=== PATIENT | male | born 1985 | race Caucasian/White ===

== ENCOUNTER 2017-08-18 08:31 | Emergency (ER) | payer SELFPAY ==
[2017-08-18 08:40] VITALS: BP 149/88
--- NOTE | 2017-08-18 10:28 | UC ---
Cardiac HPI - HPI Summary HPI Summary: 31 y/o male with no PMH, no current medications c/o chest pain since thursday night- worke up feeling "choking" sensation, + vomiting x 2, since then substernal chest pain, lightheadedness, fatigue, pallor. Denies prior episodes. Pain sharp, substernal, no radiation. unable to drive to lightheadedness at times. nothing makes pain worse, no change after eating. - History of Current Complaint Chief Complaint: UCGI Stated Complaint: EPIGASTRIC PAIN Time Seen by Provider: 08/18/17 10:10 Onset/Duration: Sudden Onset, Lasting Days, Worse Since - worse daily Pain Intensity: 4 - Allergy/Home Medications Allergies/Adverse Reactions: Allergies Allergy/AdvReac Type Severity Reaction Status Date / Time No Known Allergies Allergy Verified 03/25/16 12:29 PMH/Surg Hx/FS Hx/Imm Hx - Additional Past Medical History Additional PMH: mother- recent TIA Previously Healthy: Yes - + TOB use 1 PPD - Surgical History Surgical History: None - Family History Known Family History: Positive: None - denies dm/cardiac disease - Social History Alcohol Use: Rare Substance Use Type: Marijuana Substance Use Comment - Amount & Last Used: daily Smoking Status (MU): Heavy Every Day Tobacco Smoker Type: Cigarettes Amount Used/How Often: 1 PPD Length of Time of Smoking/Using Tobacco: 10 years Have You Smoked in the Last Year: Yes Review of Systems Constitutional: Negative Skin: Negative Eyes: Negative ENT: Negative Respiratory: Negative Cardiovascular: Negative Gastrointestinal: Negative Motor: Weakness Neurovascular: Negative Musculoskeletal: Negative Neurological: Weakness Psychological: Anxious Is Patient Immunocompromised?: No All Other Systems Reviewed And Are Negative: Yes Physical Exam Triage Information Reviewed: Yes Appearance: Well-Appearing, No Pain Distress, Well-Nourished, Other: - anxious appearing Vital Signs: Initial Vital Signs Temp 98.9 F 08/18/17 08:37 Pulse 110 08/18/17 08:37 Resp 18 08/18/17 08:37 BP 149/88 08/18/17 08:37 Pulse Ox 100 08/18/17 08:37 Vital Signs Reviewed: Yes Eyes: Positive: Conjunctiva Clear Respiratory: Positive: Chest non-tender, Lungs clear, Normal breath sounds, No respiratory distress, No accessory muscle use Cardiovascular: Positive: No Murmur, Pulses Normal, Tachycardia Abdomen Description: Positive: No Organomegaly, Soft, Other: - tender over upper epigastric region. Negative: CVA Tenderness (R), CVA Tenderness (L), Distended, Guarding Neurological Exam: Normal Psychological Exam: Normal Skin: Positive: Other - + pallor - Assessment/Plan Course Of Treatment: chest pain- sinus arrthymia on EKG, go to [facility] for further work up, osman clemente mother will drive. - Clinical Impression Provider Diagnoses: chest pain Discharge - Sign-Out/Discharge Documenting (check all that apply): Discharge - Discharge Plan Condition: Guarded Disposition: HOME Patient Education Materials: Chest Pain (ED) Referrals: No Primary Care Phys,NOPCP [Primary Care Provider] - Additional Instructions: - Patient advised to go to ER for further work up due to complexity of symptoms. - - Billing Disposition and Condition Condition: GUARDED Disposition: HOME
== END 2017-08-18 10:44 | disposition home or self-care (01) ==
LOC: UCEAST 08:31
DX: R07.89 Other chest pain (principal); F17.210 Nicotine dependence, cigarettes, uncomplicated; R53.1 Weakness; F41.9 Anxiety disorder, unspecified; I49.9 Cardiac arrhythmia, unspecified
CPT/HCPCS: 93005; 99211; G0463

== ENCOUNTER 2017-08-18 11:08 | Emergency (ER) | payer SELFPAY ==
[2017-08-18 12:09] LABS: ABS Basophils 0.1 10^3/ul (0-0.2); ABS Eosinophils 0 10^3/ul (0-0.6); ABS Lymphocytes 1.4 10^3/ul (1.0-4.8); ABS Monocytes 0.3 10^3/ul (0-0.8); ABS Neutrophils 5.5 10^3/ul (1.5-7.7); ABS Nucleated RBC 0 10^3/ul; Eosinophil % 0.3 % (0-6); Hematocrit 41 % (42-52); Hemoglobin 14.1 g/dl (14.0-18.0); Mean Corpuscular HGB Conc 34 g/dl (31-36); Mean Corpuscular Hemoglobin 33 pg (27-31); Mean Corpuscular Volume 97 fL (80-94); Mean Platelet Volume 8.6 um3 (7.4-10.4); Nucleated Red Blood Cells % 0; Platelet Count 184 10^3/ul (150-450); Red Blood Count 4.26 10^6/ul (4.0-5.4); Red Cell Distribution Width 12 % (10.5-15); White Blood Count 7.3 10^3/ul (3.5-10.8)
[2017-08-18] MEDS ORDERED: Al Hydrox/Mg Hydrox/Simet LIQ* 30 ML UDC PO ONE (12:13)
--- NOTE | 2017-08-18 12:14 | RAD ---
HISTORY: Chest pain COMPARISONS: None VIEWS: 1: frontal portable view of the chest at 11:53 AM FINDINGS: LINES AND TUBES: None. CARDIOMEDIASTINAL SILHOUETTE: The cardiomediastinal silhouette is normal for portable technique. PLEURA: The costophrenic angles are sharp. No pleural abnormalities are noted. LUNG PARENCHYMA: The lungs are clear. ABDOMEN: The upper abdomen is clear. There is no subphrenic gas. BONES AND SOFT TISSUES: No bone or soft tissue abnormalities are noted. IMPRESSION: NO ACTIVE CARDIOPULMONARY DISEASE.
--- NOTE | 2017-08-18 12:23 | ED ---
HPI Chest Pain - HPI Summary HPI Summary: Patient is a 31-year-old male who presents emergency department for sternal chest pain 4 days. Pain has been intermittent without modifying factors. Patient denies associated symptoms of nausea, vomiting, diarrhea, abdominal pain , recent upper respiratory infection, cough, fever. Admits to marijuana use but denies other illicit drugs. He has no past medical history. He is a daily tobacco smoker. Denies strong family history for CO. Patient has tried taking Tylenol for the pain with no relief. Symptoms are moderate in severity. No current modifying factors. - History of Current Complaint Chief Complaint: EDChestPainROMI Time Seen by Provider: 08/18/17 11:27 Hx Obtained From: Patient Pain Intensity: 4 - Allergy/Home Medications Allergies/Adverse Reactions: Allergies Allergy/AdvReac Type Severity Reaction Status Date / Time No Known Allergies Allergy Verified 03/25/16 12:29 Home Medications: Home Medications NK [No Home Medications Reported] 08/18/17 [History Confirmed 08/18/17] PMH/Surg Hx/FS Hx/Imm Hx Previously Healthy: Yes Endocrine/Hematology History: Denies: Hx Diabetes, Hx Thyroid Disease Cardiovascular History: Denies: Hx Hypertension Respiratory History: Denies: Hx Asthma, Hx Chronic Obstructive Pulmonary Disease (COPD) GI History: Denies: Hx Ulcer Infectious Disease History: No Infectious Disease History: Denies: Hx Clostridium Difficile, Hx Hepatitis, Hx Human Immunodeficiency Virus (HIV), Hx of Known/Suspected MRSA, Hx Shingles, Hx Tuberculosis, Hx Known/ Suspected VRE, Hx Known/Suspected VRSA, History Other Infectious Disease, Traveled Outside the [place] in Last 30 Days - Family History Known Family History: Positive: None - denies dm/cardiac disease - Social History Occupation: Employed Full-time Lives: With Family Alcohol Use: Rare Substance Use Type: Reports: Marijuana Substance Use Comment - Amount & Last Used: daily Hx Tobacco Use: Yes Smoking Status (MU): Heavy Every Day Tobacco Smoker Type: Cigarettes Amount Used/How Often: 1 PPD Length of Time of Smoking/Using Tobacco: 10 years Have You Smoked in the Last Year: Yes Review of Systems Constitutional: Negative Negative: Fever, Chills Eyes: Negative ENT: Negative Positive: Chest Pain. Negative: Palpitations Negative: Shortness Of Breath, Cough Negative: Abdominal Pain, Vomiting, Diarrhea, Nausea Genitourinary: Negative Musculoskeletal: Negative Skin: Negative Neurological: Negative All Other Systems Reviewed And Are Negative: Yes Physical Exam Triage Information Reviewed: Yes Vital Signs On Initial Exam: Initial Vitals Temp Pulse Resp BP Pulse Ox 97.8 F 86 16 134/82 100 08/18/17 11:18 08/18/17 11:18 18 11:18 08/18/17 11:18 08/18/17 11:18 Vital Signs Reviewed: Yes Appearance: Positive: Well-Appearing - Pt. lying in bed in NAD. Mother present. Head/Face: Positive: Normal Head/Face Inspection Cardiovascular: Positive: Normal, RRR Abdomen Description: Positive: Nontender, Soft Musculoskeletal: Positive: Normal Neurological: Positive: Normal, CN Intact II-III Psychiatric: Positive: Normal Diagnostics - Vital Signs Vital Signs Temp Pulse Resp BP Pulse Ox 08/18/17 11:18 97.8 F 86 16 134/82 100 - Laboratory Lab Results: Lab Results 08/18/17 Range/Units 11:55 WBC 7.3 (3.5-10.8) 10^3/ul RBC 4.26 (4.0-5.4) 10^6/ul Hgb 14.1 (14.0-18.0) g/dl Hct 41 L (42-52) % MCV 97 H (80-94) fL MCH 33 H (27-31) pg MCHC 34 (31-36) g/dl RDW 12 (10.5-15) % Plt Count 184 (150-450) 10^3/ul MPV 8.6 (7.4-10.4) um3 Neut % (Auto) 75.0 (38-83) % Lymph % (Auto) 19.0 L (25-47) % [place] % (Auto) 4.7 (0-7) % Eos % (Auto) 0.3 (0-6) % Baso % (Auto) 1.0 (0-2) % Absolute Neuts (auto) 5.5 (1.5-7.7) 10^3/ul Absolute Lymphs (auto) 1.4 (1.0-4.8) 10^3/ul Absolute Monos (auto) 0.3 (0-0.8) 10^3/ul Absolute Eos (auto) 0 (0-0.6) 10^3/ul Absolute Basos (auto) 0.1 (0-0.2) 10^3/ul Absolute Nucleated RBC 0 10^3/ul Nucleated RBC % 0 Result Diagrams: 08/18/17 11:55 08/18/17 11:55 Lab Statement: Any lab studies that have been ordered have been reviewed, and results considered in the medical decision making process. Chest Pain Course/Dx - Course Course Of Treatment: Pt. presenting with intermittent chest pain x 4 days. He is afebrile with stable vital signs. O2 saturation is 100% on RA which is normal. ECG done at 1120 shows a sinus rhythm of 91bpm, normal axis, early repolarization. Labs are unremarkable. CXR is negative for acute findings per my and radiology read. Did give a dose of Maalox without change. Results were discussed. Pt. currently does not have a PCP. He was given referral number to establish one. Advised tylenol or motrin for pain as directed. To return to ER if sxs change or worsen. - Diagnoses Provider Diagnoses: Atypical chest pain Discharge - Sign-Out/Discharge Documenting (check all that apply): Discharge - Discharge Plan Condition: Good Disposition: HOME Patient Education Materials: Chest Pain (ED) Forms: *Work Release Referrals: [facility] [Outside] No Primary Care Phys,NOPCP [Primary Care Provider] - Additional Instructions: [place] the [facility] [place] to establish a PCP Tylenol or Motrin for pain as directed Return to ER if symptoms change or worsen - Billing Disposition and Condition Condition: GOOD Disposition: HOME
[2017-08-18 12:33] LABS: EGFR Non-African American 102.4 (>60)
[2017-08-18 13:05] VITALS: BP 112/67
== END 2017-08-18 13:04 | disposition home or self-care (01) ==
LOC: ED 11:08
DX: R07.89 Other chest pain (principal); R11.2 Nausea with vomiting, unspecified; R19.7 Diarrhea, unspecified; J06.9 Acute upper respiratory infection, unspecified; F17.210 Nicotine dependence, cigarettes, uncomplicated
CPT/HCPCS: 36415; 71045; 80053; 83690; 84484; 85025; 93005; 99282; A9270-GY

== ENCOUNTER 2017-12-28 09:19 | Emergency (ER) | payer SELFPAY ==
[2017-12-28 09:30] VITALS: BP 113/74
[2017-12-28] MEDS ORDERED: oxyCODONE/Acetamin 5/325 MG* TAB PO ONE (09:43)
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
[2017-12-28] MEDS ORDERED: HYDROcodone/ACETAMIN 5-325 MG* 1 TAB PO ONE (09:49)
--- NOTE | 2017-12-28 10:16 | RAD ---
INDICATION: Left rib pain COMPARISON: None TECHNIQUE: Multiple views of the ribs were obtained. FINDINGS: Bones: There is no evidence of acute rib fracture. LUNGS: The lungs are clear. There is no pneumothorax. Pleural spaces: There is no evidence of hemothorax. Other: None IMPRESSION: NEGATIVE EXAMINATION
== END 2017-12-28 10:35 | disposition home or self-care (01) ==
LOC: UCEAST 09:19
DX: S22.32XA Fracture of one rib, left side, initial encounter for closed fracture (principal); V43.02XA Car driver injured in collision with other type car in nontraffic accident, initial encounter; F17.210 Nicotine dependence, cigarettes, uncomplicated; Y93.89 Activity, other specified; Y92.89 Other specified places as the place of occurrence of the external cause; Y99.8 Other external cause status
CPT/HCPCS: 99212; A9270-GY; G0463

== ENCOUNTER 2018-03-09 10:34 | Emergency (ER) | payer BC ==
[2018-03-09] MEDS ORDERED: Ketorolac INJ* 30 MG/ML 1 ML VIAL IV PUSH ONE (10:52)
[2018-03-09] MEDS ORDERED: NS 0.9% 1000 ML* 1,000 ML IV ONE (10:52)
--- NOTE | 2018-03-09 11:00 | ED ---
HPI Chest Pain - HPI Summary HPI Summary: The pt is a 32 y/o male brought in by ambulance c/o of since 01:30 hrs today. The pain rated 4/10 in severity woke him up from sleep and increasingly worsened until morning. He used his asthma inhaler to no relief. He notes throat pain, sluggishness, dyspnea and SOB but denies pedal edema, falls,and trauma/ injuries. As per EMS the pt got seen at [facility] where they got an abnormal EKG with inverted T wave in LI. Ems administered NTG to no relief. The pain described as tightness is aggravated by deep breath and alleviated by Oxygen NC .It radiates to the bilateral UE. The pt reports a hx of cocaine use and Fhx of CT. - History of Current Complaint Chief Complaint: EDChestPainROMI Time Seen by Provider: 03/09/18 10:38 Hx Obtained From: Patient, Family/Aquatic Performer - Mother, EMS Onset/Duration: Started Hours Ago - 01:30 hrs, Still Present, Worse Since - 09: 00 hrs Timing: Constant Initial Severity: Moderate Current Severity: Moderate Pain Intensity: 4 Pain Scale Used: 0-10 Numeric Chest Pain Location: Diffuse Chest Pain Radiates: Yes Chest Pain Radiates To:: Arm Character: Tightness Aggravating Factor(s): Deep Breaths Alleviating Factor(s): Nothing Associated Signs and Symptoms: Positive: Chest Pain, Shortness of Breath, Cough - Allergy/Home Medications Allergies/Adverse Reactions: Allergies Allergy/AdvReac Type Severity Reaction Status Date / Time No Known Allergies Allergy Verified 03/09/18 10:53 PMH/Surg Hx/FS Hx/Imm Hx Endocrine/Hematology History: Denies: Hx Diabetes, Hx Thyroid Disease Cardiovascular History: Denies: Hx Hypertension Respiratory History: Reports: Hx Asthma - Recently diagnosed Denies: Hx Chronic Obstructive Pulmonary Disease (COPD) GI History: Denies: Hx Ulcer EENT History: Denies: Hx Deafness - Cancer History Cancer Type, Location and Year: None reported - Surgical History Surgery Procedure, Year, and Place: None reported Infectious Disease History: No Infectious Disease History: Denies: Hx Clostridium Difficile, Hx Hepatitis, Hx Human Immunodeficiency Virus (HIV), Hx of Known/Suspected MRSA, Hx Shingles, Hx Tuberculosis, Hx Known/ Suspected VRE, Hx Known/Suspected VRSA, History Other Infectious Disease, Traveled Outside the [place] in Last 30 Days - Family History Known Family History: Positive: Cardiac Disease - CT-father Negative: Diabetes - Social History Occupation: Employed Full-time Lives: With Family Alcohol Use: Rare Substance Use Type: Reports: Cocaine, Marijuana Substance Use Comment - Amount & Last Used: daily Hx Tobacco Use: Yes Smoking Status (MU): Heavy Every Day Tobacco Smoker Type: Cigarettes Amount Used/How Often: 1 PPD Length of Time of Smoking/Using Tobacco: 10 years Have You Smoked in the Last Year: Yes Review of Systems Constitutional: Negative - Injuries/ trauma , Other - Positive: Sluggishness Positive: Other - Positive: Throat pain Positive: Chest Pain Positive: Shortness Of Breath, Cough, Other - Positive: Dyspnea Musculoskeletal: Negative - Falls Negative: Edema All Other Systems Reviewed And Are Negative: Yes Physical Exam - Summary Physical Exam Summary: Appearance: Well-appearing, Well-nourished, lying in bed comfortably Skin: Warm, dry, no obvious rash Eyes: sclera anicteric, no conjunctival pallor ENT: mucous membranes moist, pharynx appears normal Neck: Supple, nontender Respiratory: Clear to auscultation, no signs of respiratory distress Cardiovascular: Normal S1, S2. No murmurs. Normal distal pulses in tibial and radial bilaterally. Abdomen: Soft, nontender, normal active bowel sounds present Musculoskeletal: Normal, Strength/ROM Intact Neurological: A&Ox3, awake and alert, mentation is normal, speech is fluent and appropriate Psychiatric: affect is normal, does not appear anxious or depressed Triage Information Reviewed: Yes Vital Signs On Initial Exam: Initial Vitals Temp Pulse Resp BP Pulse Ox 98.8 F 78 16 128/67 98 03/09/18 10:45 03/09/18 10:45 03/09/18 10:45 03/09/18 10:45 03/09/18 10:45 Vital Signs Reviewed: Yes Diagnostics - Vital Signs Vital Signs Temp Pulse Resp BP Pulse Ox 03/09/18 10:45 98.8 F 78 16 128/67 98 - Laboratory Result Diagrams: 03/09/18 11:03 03/09/18 11:03 Lab Statement: Any lab studies that have been ordered have been reviewed, and results considered in the medical decision making process. - Radiology CXR Radiology Interpretation Completed By: Radiologist - IMPRESSION: O ACTIVE CARDIOPULMONARY DISEASE. The ED physician reviewed this radiology report. - EKG 11:02 Cardiac Rate: NL - 69 bpm EKG Rhythm: Sinus Rhythm Summary of EKG Findings: NSR at 69 BPM, P waves, QRS complex, and T waves are within normal limits, T waves and intervals are normal, no ischemic changes. This is a normal EKG Re-Evaluation - Re-Evaluation First Eval Re-Evaluation Time: 13:19 Change: Improved - I discussed the test results and discharge plan with the pt. Chest Pain Course/Dx - Course Course Of Treatment: A 32 year-old M with a hx of asthma and cocaine use presents to the ED with a CC of CP since 01:30 hrs today. He notes throat pain, sluggishness, cough, dyspnea and SOB but denies pedal edema, falls, and injuries /trauma. A physical exam is unremarkable. A CXR is unremarkable. An EKG is unremarkable. In the ED course, pt was given Oxygen NC, Ketorolac 10 mg IV and N.s 0.9% 1000ml IV which improved the symptoms. Patient will be discharged with a final Dx of non-cardiac chest pain. Pt is agreeable with this plan. Allergies noted - Chest Pain Differential Diagnosis/HQI/PQRI: ACS, Chest Wall, Lower Respiratory Infection, Pulmonary Embolism - Diagnoses Provider Diagnoses: Non-cardiac chest pain Discharge - Sign-Out/Discharge Documenting (check all that apply): Patient Departure - DC - Discharge Plan Condition: Good Disposition: HOME Patient Education Materials: Noncardiac Chest Pain (ED) Forms: *Work Release Referrals: [facility] [Outside] - Billing Disposition and Condition Condition: GOOD Disposition: Home - Attestation Statements Document Initiated by Scribe: Yes Documenting Scribe: Blessing Pratt Provider For Whom Enriquetaibgino is Documenting (Include Credential): Dr. Yung Duong MD Scribe Attestation: Blessing Brown scribed for Dr. Yung Duong MD on 03/10/18 at 1018. Scribe Documentation Reviewed: Yes Provider Attestation: The documentation as recorded by the Blessing solis accurately reflects the service I personally performed and the decisions made by me, Dr. Yung Duong MD
[2018-03-09 11:12] LABS: ABS Basophils 0 10^3/ul (0-0.2); ABS Eosinophils 0 10^3/ul (0-0.6); ABS Lymphocytes 0.7 10^3/ul (1.0-4.8); ABS Monocytes 0.9 10^3/ul (0-0.8); ABS Neutrophils 12.2 10^3/ul (1.5-7.7); ABS Nucleated RBC 0 10^3/ul; Eosinophil % 0.1 % (0-6); Hematocrit 41 % (42-52); Hemoglobin 14.1 g/dl (14.0-18.0); Mean Corpuscular HGB Conc 34 g/dl (31-36); Mean Corpuscular Hemoglobin 33 pg (27-31); Mean Corpuscular Volume 97 fL (80-94); Mean Platelet Volume 8.3 fL (7.4-10.4); Nucleated Red Blood Cells % 0; Platelet Count 207 10^3/ul (150-450); Red Blood Count 4.26 10^6/ul (4.00-5.40); Red Cell Distribution Width 13 % (10.5-15); White Blood Count 13.8 10^3/ul (3.5-10.8)
[2018-03-09] MEDS ORDERED: Ketorolac INJ* 30 MG/ML 1 ML VIAL ONE (11:29)
[2018-03-09 13:26] VITALS: BP 113/65
== END 2018-03-09 13:37 | disposition home or self-care (01) ==
LOC: ED 10:34
DX: R07.89 Other chest pain (principal); R06.02 Shortness of breath; R05 Cough; J45.909 Unspecified asthma, uncomplicated; F17.210 Nicotine dependence, cigarettes, uncomplicated
CPT/HCPCS: 36415; 71046; 80053; 84484; 85025; 85379; 86703; 93005; 96374; 99283; J1885